=== PATIENT | male | born 1960 | race Caucasian/White ===

== ENCOUNTER 2018-06-18 06:11 | Emergency (ER) | payer OTHER ==
[~2018-06-18] VITALS: Ht 185.4 cm; Wt 113.4 kg
--- NOTE | ~2018-06-18 | EKG ---
[place], [place] ELECTROCARDIOGRAM REPORT NAME: ANTOLIN ODELL UNIT #: [id number] ROOM: DOCTOR: EPIPHANY DRAFT REPORT BIRTHDATE: [birth year] [facility] Test Date: 2018-06-18 Test Time: 06:13:06 Pat Name: ANTOLIN ODELL Department: Room: Gender: M [employer] Cutting Machine Operator: Jennyfer Bruce : 1960 Requested By: MARK FROST Order Number: [id number] Reading MD: Gaurav Aguiar MD Measurements Intervals Stephan Rate: 59 P: 52 AR: 152 QRS: 61 QRSD: 106 T: 63 QT: 404 QTc: 401 Interpretive Statements Sinus rhythm Borderline ST elevation, lateral leads Electronically Signed On 06-18-2018 16:36:05 PST by Gaurav Aguiar MD CM:EKGRPT:ELECTROCARDIOGRAM REPORT [id number] MARK BRANDON DRAFT REPORT MARK FROST DO
[~2018-06-18 06:11] MED LIST: AMOXICILLIN500 MG PO; PEN-VEE K500 MG PO; VICODIN 5/500 505 MG PO; VICODIN ES 7501 TAB PO; XANAX0.5 MG PO
[2018-06-18] MEDS ORDERED: ALPRAZOLAM0.25 M2 PO (06:18)
[2018-06-18] MEDS ORDERED: ESCITALOPRAM OX20 MG PO (06:18)
[2018-06-18] MEDS ORDERED: VITAMIN D-32000 UNI1 PO (06:19)
[2018-06-18] MEDS ORDERED: VITAMIN D50000 UNIT PO (06:19)
[2018-06-18] MEDS ORDERED: ATORVASTATIN CA10 M1 PO (06:19)
[2018-06-18 06:33] LABS: BASO # 0.1 10*3/uL (0.0-0.1); BASO % 0.9 % (0.0-1.0); EOS # 0.5 10*3/uL (0.0-0.4); EOS % 4.9 % (1.0-4.0); HEMATOCRIT 46.8 % (42.0-52.0); HEMOGLOBIN 15.8 g/dl (14.0-18.0); LYMPH # 2.6 10*3/uL (1.3-4.4); MEAN CORPUSCULAR HGB 29.7 pg (27.0-31.0); MEAN CORPUSCULAR HGB CONC 33.8 g/dl (33.0-37.0); MEAN PLATELET VOLUME 8.7 fl (9.6-12.3); MONO % 9.5 % (3.0-9.0); NEUT % 57.9 % (47.0-73.0); PLATELET COUNT AUTOMATED 293 10*3/uL (130-400); RED BLOOD COUNT 5.32 10*6/uL (4.50-5.90); RED CELL DISTRI WIDTH 12.3 % (0-14.5); WHITE BLOOD COUNT 10.3 10*3/uL (4.8-10.8)
[2018-06-18 06:43] LABS: ACT PARTIAL THROMBO TIME 23.7 SECONDS (20.8-31.5); INTERNATIONAL NORM RATIO 0.9 (2.0-3.5)
[2018-06-18 06:50] LABS: ALBUMIN 3.3 gm/dl (3.1-4.5); ALKALINE PHOSPHATASE 64 U/L (45-117); BUN 16 mg/dl (7-24); CHLORIDE 107 mmol/L (98-107); CREATININE 0.92 mg/dL (0.70-1.30); POTASSIUM 3.9 mmol/L (3.5-5.1); SGOT/AST 19 IU/L (3-35); SGPT/ALT 33 U/L (12-78); SODIUM 142 mmol/L (136-145)
[2018-06-18 06:52] LABS: TROPONIN I < 0.015 ng/ml (<0.045)
== END 2018-06-18 08:37 | disposition home or self-care (01) ==
LOC: ED 06:11
PROVIDERS: Student in an Organized Health Care Education/Training Program
DX: R07.9 Chest pain, unspecified (principal); Z79.899 Other long term (current) drug therapy

== ENCOUNTER 2019-09-16 15:56 | Emergency (ER) | payer OTHER ==
[~2019-09-16] VITALS: Ht 185.4 cm; Wt 120.2 kg
[~2019-09-16 15:56] MED LIST changes: +ALPRAZOLAM0.25 M2 PO; +ATORVASTATIN CA10 M1 PO; +ESCITALOPRAM OX20 MG PO; +VITAMIN D-32000 UNI1 PO; +VITAMIN D50000 UNIT PO
[2019-09-16 17:05] LABS: BILIRUBIN NEGATIVE (NEGATIVE); CLARITY CLEAR (CLEAR); COLOR YELLOW (YELLOW); GLUCOSE NEGATIVE (NEGATIVE); KETONE NEGATIVE (NEGATIVE)
[2019-09-16 17:06] LABS: BLOOD TRACE-INTACT (NEGATIVE); LEUKO ESTERASE NEGATIVE (NEGATIVE); NITRITE NEGATIVE (NEGATIVE); PH 6.5 (5.0-9.0); RBC 0-2 rbc/hpf (0-2); UROBILINOGEN 0.2 E.U./dl (0.2-1.0)
[2019-09-16 17:07] LABS: WBC 0-2 wbc/hpf (0-5)
[2019-09-16] MEDS ORDERED: AUGMENTIN 875875 MG PO (17:39)
[2019-09-18 15:05] LABS: GONOCOCCUS BY NAA Negative (Negative)
== END 2019-09-16 17:53 | disposition home or self-care (01) ==
LOC: ED 15:56
PROVIDERS: Nurse Practitioner Family
DX: K11.20 Sialoadenitis, unspecified (principal); R10.9 Unspecified abdominal pain; R30.9 Painful micturition, unspecified; E11.9 Type 2 diabetes mellitus without complications; Z79.899 Other long term (current) drug therapy

== ENCOUNTER 2022-05-05 04:22 | Emergency (ER) | payer OTHER ==
[~2022-05-05] VITALS: Ht 185.4 cm; Wt 124.7 kg
[~2022-05-05 04:22] MED LIST changes: +AUGMENTIN 875875 MG PO
[2022-05-05] MEDS ORDERED: METFORMIN HYDR500 MG PO (04:31)
[2022-05-05] MEDS ORDERED: VITAMIN D3125 MCG PO (04:55)
[2022-05-05 05:25] LABS: ALKALINE PHOSPHATASE 78 U/L (45-117); BUN 21 mg/dl (7-24); CHLORIDE 107 mmol/L (98-107); LIPASE 185 U/L (73-393); POTASSIUM 4.3 mmol/L (3.5-5.1); SGOT/AST 19 IU/L (3-35); SGPT/ALT 37 U/L (12-78); SODIUM 140 mmol/L (136-145); TOTAL PROTEIN 7.7 gm/dL (6.4-8.2)
[2022-05-05 06:09] LABS: BASO # 0.1 10*3/uL (0.0-0.1); BASO % 0.8 % (0.0-1.0); EOS # 0.4 10*3/uL (0.0-0.4); EOS % 4.4 % (1.0-4.0); HEMATOCRIT 48.1 % (42.0-52.0); LYMPH # 2.2 10*3/uL (1.3-4.4); LYMPH % 24.6 % (27.0-41.0); MEAN CELL VOLUME 88.6 fl (80.0-94.0); MEAN CORPUSCULAR HGB 29.7 pg (27.0-31.0); MEAN CORPUSCULAR HGB CONC 33.5 g/dl (33.0-37.0); MEAN PLATELET VOLUME 9.3 fl (9.6-12.3); MONO # 0.9 10*3/uL (0.1-1.0); NEUT # 5.4 10*3/uL (2.3-7.9); NEUT % 58.9 % (47.0-73.0); PLATELET COUNT AUTOMATED 318 10*3/uL (130-400); RED BLOOD COUNT 5.43 10*6/uL (4.50-5.90); RED CELL DISTRI WIDTH 12.1 % (0-14.5); WHITE BLOOD COUNT 9.1 10*3/uL (4.8-10.8)
== END 2022-05-05 06:31 | disposition left against medical advice (07) ==
LOC: ED 04:22
PROVIDERS: Internal Medicine
DX: K80.20 Calculus of gallbladder without cholecystitis without obstruction (principal); K82.8 Other specified diseases of gallbladder; Z79.899 Other long term (current) drug therapy

== ENCOUNTER → 2022-06-14 | Day surgery (SDC) | payer OTHER ==
[2022-06-10 13:53] VITALS: BP 111/67
[~2022-06-14] VITALS: Ht 185.4 cm; Wt 122.5 kg
[~2022-06-14] MED LIST changes: +COLACE100 MG PO; +HYDROCODONE-AC1 EAC1 PO; +METFORMIN HYDR500 MG PO; +ONDANSETRON HYDR4 M1 PO; +VITAMIN D3125 MCG PO
[2022-06-14 09:20] VITALS: BP 149/82
[2022-06-14 10:50] VITALS: BP 140/89
[2022-06-14 11:05] VITALS: BP 167/80
[2022-06-14 11:20] VITALS: BP 129/81
[2022-06-14 11:31] VITALS: BP 140/92
[2022-06-14 11:50] VITALS: BP 149/86
== END | disposition home or self-care (01) ==
LOC: SDC 06-10 13:15
PROVIDERS: ATTEND Surgery
DX: K80.12 Calculus of gallbladder with acute and chronic cholecystitis without obstruction (principal); F41.9 Anxiety disorder, unspecified; F17.290 Nicotine dependence, other tobacco product, uncomplicated; F43.10 Post-traumatic stress disorder, unspecified; Z90.89 Acquired absence of other organs; Z79.899 Other long term (current) drug therapy

== ENCOUNTER → 2025-07-02 | Outpatient (CLI) | payer OTHER ==
[~2025-07-02] MED LIST changes: +ALPRAZOLAM0.5 M3 PO; +LIPITOR10 MG PO
[2025-07-02 12:00] LABS: BASO # 0.0 10*3/uL (0.0-0.1); BASO % 0.5 % (0.0-1.0); EOS # 0.4 10*3/uL (0.0-0.4); EOS % 4.1 % (1.0-4.0); MEAN CELL VOLUME 90.7 fl (80.0-94.0); MEAN CORPUSCULAR HGB 29.6 pg (27.0-31.0); MEAN PLATELET VOLUME 9.0 fl (9.6-12.3); MONO # 0.8 10*3/uL (0.1-1.0); MONO % 9.3 % (3.0-9.0); NEUT # 5.6 10*3/uL (2.3-7.9); NEUT % 65.2 % (47.0-73.0); NUCLEATED RED BLOOD CELL 0.0 % (0.0-0.0); NUCLEATED RED BLOOD CELL 0.0 10*3/uL (0.0-0.0); PLATELET COUNT AUTOMATED 312 10*3/uL (130-400); RED CELL DISTRI WIDTH 13.2 % (0-14.5)
[2025-07-02 12:24] LABS: BUN 20 mg/dl (9-23); LDL CHOLESTEROL 113 mg/dL (9-159); SGPT/ALT 15 U/L (5-49)
[2025-07-02 12:50] LABS: VITAMIN D, 25-HYDROXY 60.8 ng/mL (30-100)
== END | disposition home or self-care (01) ==
LOC: LAB 11:27
PROVIDERS: ATTEND Nurse Practitioner Family
DX: E11.9 Type 2 diabetes mellitus without complications (principal); Z13.0 Encounter for screening for diseases of the blood and blood-forming organs and certain disorders involving the immune mechanism; Z13.220 Encounter for screening for lipoid disorders; Z12.5 Encounter for screening for malignant neoplasm of prostate